=== PATIENT | male | born 1995 | race Two or more races ===

== ENCOUNTER 2019-02-06 18:48 | Emergency (ER) | payer MEDICAID ==
[~2019-02-06] VITALS: Ht 195.6 cm; Wt 81.8 kg
[2019-02-06] MEDS: KETOROLAC TROMETHAMINE 10 MG TABLET PO ONE (21:29)
[2019-02-06 21:40] VITALS: BP 121/80
== END 2019-02-06 21:48 | disposition home or self-care (01) ==
LOC: EMS 18:50
DX: K00.6 Disturbances in tooth eruption (principal); K01.1 Impacted teeth